=== PATIENT | female | born 1990 | race American Indian/Alaskan Native ===

== ENCOUNTER 2018-11-06 09:53 | Emergency (ER) | payer MEDICAID, OTHER ==
[2018-11-06] MEDS ORDERED: IBUPROFEN 800 MG TAB PO ONE (10:49)
[2018-11-06] MEDS ORDERED: CYCLOBENZAPRINE 10 MG TAB PO ONE (10:49)
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
[2018-11-06 11:34] VITALS: BP 154/100
== END 2018-11-06 11:32 | disposition home or self-care (01) ==
LOC: ED 09:53
DX: S80.11XA Contusion of right lower leg, initial encounter (principal); G43.909 Migraine, unspecified, not intractable, without status migrainosus; F17.200 Nicotine dependence, unspecified, uncomplicated; I10 Essential (primary) hypertension; Z91.013 Allergy to seafood; V89.2XXA Person injured in unspecified motor-vehicle accident, traffic, initial encounter; Y93.89 Activity, other specified; Y92.89 Other specified places as the place of occurrence of the external cause; Y99.8 Other external cause status